=== PATIENT | female | born 1960 | race Caucasian/White ===

== ENCOUNTER → 2016-10-04 | Day surgery (SDC) | payer BC ==
[~2016-10-04] MED LIST: BUPIVACAINE HCL PF 0.75% 30 ML VIAL ONE; FISH100020 PO; HYDR25TA5 PO; IBUP200C PO; MELO-1 PO; MOBI15TA PO; OMEG100037 PO; PHEN1TAB84 PO; PHEN37.54 PO; PROPOFOL 200 MG/20 ML AMP IV ONE; TIZA2CAP3 PO; TRAM50TA PO; TRIAMCINOLONE ACETONIDE 40 MG/ML VIAL NB ONE
--- NOTE | 2016-10-09 11:07 | M6 ---
cc: JENNYFER LANCE M.D. DATE 10/04/2016 DATE OF 1960 PROCEDURE Fluoroscopically guided injection bilateral lumbar facet joints (bilateral L3-4, L4-5 and L5-S1 facet joints). History and physical was completed and signed. Consent was signed. Procedure site was marked. Medications were listed and reconciled. Pain score was recorded. Allergies were noted. Time out was taken. Fluoroscopy time was recorded where applicable. Sedation was administered or directed by Dr. Lance. The patient was given oxygen. The patient was monitored by a registered nurse. Total procedure time was greater than 15 minutes. PROCEDURE NOTE IV was started. Blood pressure cuff, pulse oximeter and EKG were applied. The patient was placed in the prone position on a Tomas table, sedated with small amounts of propofol titrated to effect. Vital signs were monitored and remained stable throughout the procedure. The lumbar area was prepped with alcohol and 10% Betadine solution and draped with sterile drapes. Fluoroscopy was used in a Luis Manuel dog view to clearly visualize the bilateral lumbar facet joints at L3-4, L4-5 and L5-S1. Separate sterile 3-1/2-inch, 25-gauge spinal needles were advanced into these joints under fluoroscopic guidance. There was negative aspiration for blood or any other type of fluid. At each location the patient was given 1 mL of Marcaine 0.75% which contained 10 mg of Kenalog. Following the procedure the patient was taken to the recovery room with stable vital signs, neurologically intact. She will be evaluated immediately and with followup to determine if she has a subjective decrease in her usual pain and a corresponding objective increase her functional capabilities. WQuinton Lance MD [facility]/DOROTHY /9:52 AM /10:57 AM
== END | disposition home or self-care (01) ==
LOC: PHSDC 08:31
PROVIDERS: ATTEND Pain Medicine Interventional Pain Medicine
DX: M54.5 Low back pain (principal)
CPT/HCPCS: 64493; 64494; 64495; 99152; J3301

== ENCOUNTER → 2016-10-29 | Day surgery (SDC) | payer BC ==
[~2016-10-29] MED LIST changes: -BUPIVACAINE HCL PF 0.75% 30 ML VIAL ONE; -HYDR25TA5 PO; +KETOROLAC TROMETHAMINE 30 MG/ML (IVP) VIAL IV PUSH ONE; +LIDOCAINE HCL 1% 30 ML VIAL INFIL ONE; +MEPERIDINE HCL 25 MG/ML VIAL IV ONE; +MEPERIDINE HCL 50 MG/ML VIAL IV ONE; +MIDAZOLAM HCL 2 MG/2 ML VIAL IV ONE; +ONDANSETRON HCL 4 MG/2 ML VIAL ONE; +SODIUM CHLORIDE 0.9% 10 ML VIAL ONE; -TRIAMCINOLONE ACETONIDE 40 MG/ML VIAL NB ONE; +methylPREDNISolone ACETATE 40 MG/ML VIAL I-ARTICULR ONE
--- NOTE | 2016-11-01 05:47 | M6 ---
cc: JENNYFER LANCE M.D. DATE 10/29/2015 DATE OF , 1960 PROCEDURE Radiofrequency rhizotomy bilateral lumbar facet joints (bilateral L3-4, L4-5 and L5-S1 facet joints). History and physical was completed and signed. Consent was signed. Procedure site was marked. Medications were listed and reconciled. Pain score was recorded. Allergies were noted. Time out was taken. Fluoroscopy time was recorded where applicable. Sedation was administered or directed by Dr. Lance. The patient was given oxygen. The patient was monitored by a registered nurse. Total procedure time was greater than 15 minutes. 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 The patient reported 50% or greater pain relief from previous diagnostic facet joint blocks done with fluoroscopic guidance. PROCEDURE NOTE: An IV was started, blood pressure cuff, pulse oximeter and EKG were applied. The patient was placed in the prone position on a Tomas table, sedated with small amounts of Versed and fentanyl and propofol titrated to effect. Vital signs were monitored and remained stable throughout the procedure. The lumbar area was scrubbed with antimicrobial solution, prepped with 10% Betadine solution, draped with sterile drapes. Fluoroscopy was used in a slightly oblique angle (Luis Manuel dog view) to clearly visualize the target areas which were the cephalad most medial angle of the transverse processes as they met the pedicle in the anatomical location of the medial branch of the posterior primary ramus at bilateral L3-4, L4-5 and L5-S1 facet joints. The skin was infiltrated with 1% Xylocaine using a 27 gauge needle. An insulated 20 gauge radiofrequency needle with a 10 mm curved tip was advanced to the above-mentioned target areas. Fluoroscopy was used to confirm the needle was properly placed and not near the nerve root. At no time did the patient report any paresthesias down the lower extremity. Once properly positioned thermal lesions took place at 80 degrees Centigrade x 100 seconds at each location. Then, a small amount of Depo-Medrol was injected at each location for a total of 40 mg of Depo-Medrol. Following this the patient was taken to the recovery room with stable vital signs, neurologically intact. W. MD JHONATAN Mcneal/DOROTHY /9:00 AM /5:40 AM
== END | disposition home or self-care (01) ==
LOC: PHSDC 06:43
PROVIDERS: ATTEND Pain Medicine Interventional Pain Medicine
DX: M54.5 Low back pain (principal)
CPT/HCPCS: 64635; 64636; 99152; 99153; J1030; J1885; J2175; J2250; J2405

== ENCOUNTER → 2017-03-03 | Day surgery (SDC) | payer BC ==
[~2017-03-03] MED LIST changes: +BUPIVACAINE HCL PF 0.75% 30 ML VIAL ONE; -KETOROLAC TROMETHAMINE 30 MG/ML (IVP) VIAL IV PUSH ONE; -LIDOCAINE HCL 1% 30 ML VIAL INFIL ONE; -MELO-1 PO; -MEPERIDINE HCL 50 MG/ML VIAL IV ONE; -OMEG100037 PO; -ONDANSETRON HCL 4 MG/2 ML VIAL ONE; -PHEN1TAB84 PO; -SODIUM CHLORIDE 0.9% 10 ML VIAL ONE; +TRIAMCINOLONE ACETONIDE 40 MG/ML VIAL I-LESIONAL ONE; -methylPREDNISolone ACETATE 40 MG/ML VIAL I-ARTICULR ONE
--- NOTE | 2017-03-05 07:59 | M6 ---
cc: Francy LANCE DATE 03/03/2017 DATE OF 1960 PROCEDURE S5 nerve neurolysis PROCEDURE NOTE History and physical was completed and signed. Consent was signed. Procedure site was marked. Medications were listed and reconciled. Pain score was recorded. Allergies were noted. Time out was taken. Fluoroscopy time was recorded where applicable. Sedation was administered or directed by Dr. Lance. The patient was given oxygen. The patient was monitored by a registered nurse. Total procedure time was greater than 15 minutes. IV was started, blood pressure cuff, pulse oximeter and EKG were applied. The patient was placed in the prone position on a Tomas table sedated with small amounts of Versed, Demerol and propofol titrated to effect. Vital signs were monitored and remained stable throughout the procedure. The sacral area was prepped with alcohol and 10% Betadine solution and draped with sterile drapes. The coccyx was palpated. The sacral hiatus was palpated. A 25 gauge needle was inserted down to the periosteum just distal to the hiatus and the patient was given 8 mL of 0.75% Marcaine and 40 mg of Kenalog. Following this, the patient was taken to the recovery room with stable vital signs neurologically intact. MD JHONATAN Pineda/NICOLE /7:53 AM /8:00 AM
== END | disposition home or self-care (01) ==
LOC: PHSDC 06:37
PROVIDERS: ATTEND Pain Medicine Interventional Pain Medicine
DX: M53.3 Sacrococcygeal disorders, not elsewhere classified (principal)
CPT/HCPCS: 64640; 99152; J2175; J2250; J3301

== ENCOUNTER → 2017-12-11 | Day surgery (SDC) | payer BC ==
[~2017-12-11] MED LIST changes: -IBUP200C PO; +LIDOCAINE HCL 1% 30 ML VIAL INFIL ONE; +MEPERIDINE HCL 50 MG/ML VIAL IV ONE; +SODIUM CHLORIDE 0.9% 10 ML VIAL ONE; -TRIAMCINOLONE ACETONIDE 40 MG/ML VIAL I-LESIONAL ONE; +TRIAMCINOLONE ACETONIDE 40 MG/ML VIAL NERV BLOCK ONE; +methylPREDNISolone ACETATE 40 MG/ML VIAL I-ARTICULR ONE
--- NOTE | 2017-12-11 08:35 | M6 ---
cc: Francy Lance MD DATE: 12/11/2017 DATE OF : 1960 PROCEDURE: Radiofrequency ablation bilateral lumbar facet joints (bilateral L3-L4, L4-L5 and L5-S1 facet joints). PROCEDURE NOTE: History and physical was completed and signed. Consent was signed. Procedure site was marked. Medications were listed and reconciled. Pain score was recorded. Allergies were noted. Time out was taken. Fluoroscopy time was recorded where applicable. Sedation was administered or directed by Dr. Lance. The patient was given oxygen. The patient was monitored by a registered nurse. Total procedure time was greater than 15 minutes. 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 The patient reported 50% or greater pain relief from previous diagnostic facet joint blocks done with fluoroscopic guidance. An IV was started, blood pressure cuff, pulse oximeter and EKG were applied. The patient was placed in the prone position on a Tomas table, sedated with small amounts of Versed and fentanyl and propofol titrated to effect. Vital signs were monitored and remained stable throughout the procedure. The lumbar area was scrubbed with antimicrobial solution, prepped with 10% Betadine solution, draped with sterile drapes. Fluoroscopy was used in a slightly oblique angle (Luis Maneul dog view) to clearly visualize the target areas which were the cephalad most medial angle of the transverse processes as they met the pedicle in the anatomical location of the medial branch of the posterior primary ramus on the bilateral L3-4, L4-5 and L5-S1 facet joints. The skin was infiltrated with 1% Xylocaine using a 27 gauge needle. An insulated 20 gauge radiofrequency needle with a 10-mm curved tip was advanced to the above-mentioned target areas. Fluoroscopy was used to confirm the needle was properly placed and not near the nerve root. At no time did the patient report any paresthesias down the lower extremity. Once properly positioned thermal lesions took place at 80 degrees Centigrade x 100 seconds at each location. Then, a small amount of Depo-Medrol was injected at each location for a total of 40 mg of Depo-Medrol. Following this the patient was taken to the recovery room with stable vital signs, neurologically intact. W. MD GABRIELA Mcneal , 08:06 AM , 08:33 AM
== END | disposition home or self-care (01) ==
LOC: PHSDC 06:40
PROVIDERS: ATTEND Pain Medicine Interventional Pain Medicine
DX: M54.5 Low back pain (principal)
CPT/HCPCS: 64635; 64636; 99152; 99153; J1030; J2175; J2250; J3301

== ENCOUNTER → 2018-02-23 | Day surgery (SDC) | payer BC ==
[~2018-02-23] MED LIST changes: -BUPIVACAINE HCL PF 0.75% 30 ML VIAL ONE; +IOHEXOL 180 MG/ML 20 ML VIAL (for RAD DIAG) EPIDURAL ONE; -MEPERIDINE HCL 25 MG/ML VIAL IV ONE; -MEPERIDINE HCL 50 MG/ML VIAL IV ONE; -MIDAZOLAM HCL 2 MG/2 ML VIAL IV ONE; -PHEN37.54 PO; -methylPREDNISolone ACETATE 40 MG/ML VIAL I-ARTICULR ONE; +methylPREDNISolone ACETATE 80 MG/ML VIAL ONE
--- NOTE | 2018-02-23 09:59 | M6 ---
cc: Francy Lance MD DATE: 02/23/2018 DATE OF : 1960. PROCEDURE PERFORMED: Fluoroscopically guided L5-S1 intralaminar epidural steroid injection. History and physical was completed and signed. Consent was signed. Procedure site was marked. Medications were listed and reconciled. Pain score was recorded. Allergies were noted. Time out was taken. Fluoroscopy time was recorded where applicable. Sedation was administered or directed by Dr. Lance. The patient was given oxygen. The patient was monitored by a registered nurse. Total procedure time was greater than 15 minutes. PROCEDURE NOTE: IV was started. Blood pressure cuff, pulse oximeter and EKG were applied. The patient was placed in the prone position on a Tomas table, sedated with small amounts of propofol titrated to effect. Vital signs were monitored and remained stable throughout the procedure. The lumbar area was prepped with alcohol and 10% Betadine solution and draped with sterile drapes. Fluoroscopy was used to visualize the L5-S1 intralaminar space. The skin was infiltrated with 1% Xylocaine using a 27-gauge needle. Then, a 3-1/2 inch, 18-gauge Lovett needle was advanced using fluoroscopic guidance and the loss of resistance technique into the epidural space at L5-S1, slightly to the left of the midline. There was negative aspiration for blood or any other type of fluid and the patient was given 10 mL of 0.5% Xylocaine, 3 mL of Omnipaque and 80 mg of Depo-Medrol. Following this, the patient was taken to the recovery room with stable vital signs and neurologically intact. She will be evaluated immediately and with followup to determine if she has a subjective decrease in her usual pain and a corresponding objective increase in her functional capabilities. MD JHONATAN Pineda/MELISSA , 09:34 AM , 09:59 AM
--- NOTE | 2018-02-23 10:05 | M6 ---
cc: Francy Lance MD DATE: 02/23/2018 PROCEDURE: Fluoroscopically guided epidurogram. INDICATION: An epidurogram was done on Ms. Haas today. Images were saved to the patient's chart. The indication for the procedure is the fact that the patient has left buttocks and posterior thigh pain. She has a previous MRI showing a left-sided bulging disk at L2-L3, that we need to determine if there is flow injected medication to those nerve roots or if there is any obstruction of flow. History and physical was completed and signed. Consent was signed. Procedure site was marked. Medications were listed and reconciled. Pain score was recorded. Allergies were noted. Time out was taken. Fluoroscopy time was recorded where applicable. Sedation was administered or directed by Dr. Lance. The patient was given oxygen. The patient was monitored by a registered nurse. Total procedure time was greater than 15 minutes. DESCRIPTION: IV was started. Blood pressure cuff, pulse oximeter and EKG were applied. The patient was placed in the prone position on a Tomas table, sedated with small amounts of Propofol. Vital signs were monitored and remained stable throughout the procedure. Then, the epidural space was entered, as described in a separate note. The epidural space was accessed at L5-S1 to the left of the midline. Omnipaque dye was injected and seen to spread in a cephalad direction up to the L3 level, but not above. CONCLUSION: In the future if an epidural is done on this patient, I will enter the epidural space at a more cephalad level, probably at the L3 level. Francy Lance MD [facility]/TL , 09:37 AM , 10:04 AM
== END | disposition home or self-care (01) ==
LOC: PHSDC 07:54
PROVIDERS: ATTEND Pain Medicine Interventional Pain Medicine
DX: M54.5 Low back pain (principal); M79.662 Pain in left lower leg
CPT/HCPCS: 62323; 99152; J1040; J3301; Q9965